=== PATIENT | female | born 1995 | race Caucasian/White ===

== ENCOUNTER → 2019-05-30 | Outpatient (CLI) | payer BC, OTHER ==
--- NOTE | 2019-05-30 11:17 | ECGEPIP ---
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
== END ==
LOC: M LAB 08:47
PROVIDERS: ATTEND Family Medicine
DX: F11.90 Opioid use, unspecified, uncomplicated (principal)

== ENCOUNTER → 2019-06-04 | Outpatient (CLI) | payer BC, OTHER ==
[2019-06-04 16:32] LABS: HEMATOCRIT 40.4 % (36.0-47.0); HEMOGLOBIN 13.5 g/dl (12.0-15.5); MEAN CORPUSCULAR HEMOGLOBIN 30.8 pg (27.0-33.0); MEAN CORPUSCULAR HGB CONC 33.4 g/dl (32.0-36.5); PLATELET COUNT, AUTOMATED 298 10^3/uL (150-450); RED BLOOD COUNT 4.39 10^6/uL (4.00-5.40); WHITE BLOOD COUNT 10.4 10^3/uL (4.0-10.0)
[2019-06-04 16:55] LABS: ALT/SGPT 27 U/L (12-78); BILIRUBIN,TOTAL 0.2 MG/DL (0.2-1.0); BLOOD UREA NITROGEN 15 MG/DL (7-18); CALCIUM LEVEL 9.4 MG/DL (8.5-10.1); CARBON DIOXIDE LEVEL 34 MEQ/L (21-32); CHLORIDE LEVEL 102 MEQ/L (98-107); GLOMERULAR FILTRATION RATE > 60.0 (>60); GLUCOSE, FASTING 89 MG/DL (70-100); SODIUM LEVEL 141 MEQ/L (136-145)
[2019-06-04 17:39] LABS: CHLAMYDIA DNA AMPLIFICATION POSITIVE (NEGATIVE); GC DNA AMPLIFICATION NEGATIVE (NEGATIVE)
[2019-06-04 17:42] LABS: HIV 1&2 SCREEN CENTAUR NEGATIVE (NEGATIVE)
[2019-06-07 10:40] LABS: HEPATITIS B SURFACE ANTIGEN NEGATIVE (NEGATIVE)
[2019-06-07 11:08] LABS: HEPATITIS C VIRUS ABY INDEX < 0.0 INDEX (<0.8)
== END ==
LOC: M WUC 12:26
PROVIDERS: ATTEND Family Medicine
DX: F11.20 Opioid dependence, uncomplicated (principal)

== ENCOUNTER → 2019-07-09 | Outpatient (REF) | payer BC, OTHER | LOC: M LAB 19:51 | PROVIDERS: ATTEND Physician Assistant | DX: J02.9 Acute pharyngitis, unspecified (principal) ==

== ENCOUNTER → 2019-08-08 | Outpatient (REF) | payer OTHER | LOC: M LAB REF 17:53 | PROVIDERS: ATTEND Physician Assistant | DX: J02.9 Acute pharyngitis, unspecified (principal) ==

== ENCOUNTER → 2020-04-17 | Outpatient (CLI) | payer OTHER ==
[2020-04-17 11:52] LABS: BASO # 0.1 10^3/uL (0.0-0.2); BASO % 0.5 % (0.0-1.0); EOS # 0.1 10^3/uL (0.0-0.5); HEMATOCRIT 43.5 % (36.0-47.0); HEMOGLOBIN 14.1 g/dl (12.0-15.5); LYMPH # 5.1 10^3/uL (1.5-5.0); LYMPH % 37.1 % (24.0-44.0); MEAN CORPUSCULAR HEMOGLOBIN 29.1 pg (27.0-33.0); MEAN CORPUSCULAR HGB CONC 32.4 g/dl (32.0-36.5); MEAN CORPUSCULAR VOLUME 89.9 fl (80.0-96.0); MONO # 0.7 10^3/uL (0.0-0.8); MONO % 4.8 % (0.0-5.0); NEUTROPHILS # 7.7 10^3/uL (1.5-8.5); NEUTROPHILS % 56.1 % (36.0-66.0); PLATELET COUNT, AUTOMATED 335 10^3/uL (150-450); RED BLOOD COUNT 4.84 10^6/uL (4.00-5.40); WHITE BLOOD COUNT 13.8 10^3/uL (4.0-10.0)
[2020-04-17 12:11] LABS: ERYTHROCYTE SEDIMENTATION RATE 18 mm/hr (0-20)
[2020-04-17 12:21] LABS: ALBUMIN 4.5 GM/DL (3.2-5.2); ALT/SGPT 114 U/L (12-78); BILIRUBIN,TOTAL 0.4 MG/DL (0.2-1.0); BLOOD UREA NITROGEN 19 MG/DL (7-18); CALCIUM LEVEL 9.7 MG/DL (8.5-10.1); CARBON DIOXIDE LEVEL 30 MEQ/L (21-32); CHLORIDE LEVEL 102 MEQ/L (98-107); FREE T4 1.23 NG/DL (0.76-1.46); GLOMERULAR FILTRATION RATE > 60.0 (>60); GLUCOSE, FASTING 82 MG/DL (70-100); POTASSIUM SERUM 3.8 MEQ/L (3.5-5.1); SODIUM LEVEL 139 MEQ/L (136-145)
[2020-04-18 16:32] LABS: Lyme Disease IgG/IgM Antibodie <0.91 ISR (0.00-0.90); Lyme Disease IgM Ab Quantitati <0.80 index (0.00-0.79)
== END ==
LOC: M WUC 09:23
PROVIDERS: ATTEND Physician Assistant
DX: G51.0 Bell's palsy (principal); Z20.828 Contact with and (suspected) exposure to other viral communicable diseases

== ENCOUNTER 2021-01-03 16:46 | Inpatient (IN) | payer BC, OTHER ==
[~2021-01-03] VITALS: Ht 162.6 cm; Wt 113.8 kg
[2021-01-03] MEDS ORDERED: METH-1177 PO (16:57)
[2021-01-03] MEDS ORDERED: VENL37.598 (16:57)
[2021-01-03 17:34] LABS: HEMATOCRIT 43.5 % (36.0-47.0); HEMOGLOBIN 14.9 g/dl (12.0-15.5); MEAN CORPUSCULAR HGB CONC 34.3 g/dl (32.0-36.5); MEAN CORPUSCULAR VOLUME 87.7 fl (80.0-96.0); PLATELET COUNT, AUTOMATED 369 10^3/uL (150-450); RED BLOOD COUNT 4.96 10^6/uL (4.00-5.40); WHITE BLOOD COUNT 22.8 10^3/uL (4.0-10.0)
[2021-01-03 17:58] LABS: BLOOD UREA NITROGEN 14 MG/DL (7-18); CALCIUM LEVEL 9.5 MG/DL (8.5-10.1); CARBON DIOXIDE LEVEL 26 MEQ/L (21-32); CHLORIDE LEVEL 102 MEQ/L (98-107); CK-MB VALUE MASS 6.7 NG/ML (<3.6); CPK CREATINE PHOSPHOKINASE 272 U/L (26-192); CREATININE FOR GFR 0.65 MG/DL (0.55-1.30); GLOMERULAR FILTRATION RATE > 60.0 (>60); GLUCOSE, FASTING 85 MG/DL (70-100); MB/CK RELATIVE INDEX 2.46 (< OR =4); SODIUM LEVEL 136 MEQ/L (136-145); TROPONIN I < 0.02 NG/ML (< 0.10)
[2021-01-03] MEDS ORDERED: NS 1,000 ML IV ONE (18:05)
[2021-01-03 18:23] LABS: ETHYL ALCOHOL (ETHANOL) < 0.003 % (0.000-0.010)
[2021-01-03 18:25] LABS: HCG, SERUM QUALITATIVE NEGATIVE (NEGATIVE)
[2021-01-03 18:32] LABS: RSV AMPLIFICATION NEGATIVE (NEGATIVE)
[2021-01-03] MEDS ORDERED: VALSARTAN 80 MG TAB (DIOVAN) PO ONE (18:50)
--- NOTE | 2021-01-03 19:15 | ECGEPIP ---
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
[2021-01-03 20:48] LABS: AMPHETAMINES LEVEL URINE NEGATIVE (NEGATIVE); BARBITURATES URINE NEGATIVE (NEGATIVE); BENZODIAZEPINES URINE NEGATIVE (NEGATIVE); CANNABINOIDS URINE POSITIVE (NEGATIVE); COCAINE METABOLITE URINE NEGATIVE (NEGATIVE); METHADONE URINE POSITIVE (NEGATIVE); OPIATES URINE POSITIVE (NEGATIVE); PHENCYCLIDINE URINE NEGATIVE (NEGATIVE)
--- NOTE | 2021-01-03 21:31 | REPVR ---
PROCEDURE INFORMATION: Exam: XR Chest Exam date and time: 01/03/2021 8:58 PM Age: 25 years old Clinical indication: Other: Palpitations TECHNIQUE: Imaging protocol: XR of the chest. Views: 1 view. COMPARISON: No relevant prior studies available. FINDINGS: Lungs: Unremarkable. No consolidation. Pleural spaces: Unremarkable. No pleural effusion. No pneumothorax. Heart/Mediastinum: Unremarkable. No cardiomegaly. Bones/joints: Unremarkable. IMPRESSION: No acute findings. Electronically signed by: Dany Snider On 01/03/2021 21:30:53 PM
[2021-01-03] MEDS ORDERED: ACETAMINOPHEN TAB 650MG DOSE (2X325MG) PO PRN (23:05)
--- NOTE | 2021-01-03 23:46 | HPEPDOC ---
[facility] Medical History & Physical Date of Admission Jan 03, 2021 Date of Service: Jan 03, 2021 Primary Care Physician: JAZZ MCCORMACK PA-C Attending Physician: ANUPAM MARTINO MD History and Physical CHIEF COMPLAINT: Syncope HISTORY OF PRESENT ILLNESS: Patient is a 25-year-old female who presented to [facility] ED because she was seen at an urgent care earlier today and found to have a heart rate in the low 40s. Patient states that she was recently started on Effexor this past Friday (37.5 mg) by her physician at [facility] for anxiety/depression and on Friday she began to have extreme fatigue, poor PO intake, sleepiness, and generalized back pain. She slept most of the day on Friday and on Friday she stood up to walk to the bathroom she was lightheaded and smacked her head on the toilet, purposely laid down on the flood and then per the patient, "passed out for 3 hours". After she woke up from this she felt fine and went back to sleep. Her fatigue continued and she slept all day Friday and Friday however she got up to use the bathroom and when she entered the bath room she became lightheaded and collapsed. She came to about an hour later and went back to sleep. The following morning she went to the urgent care because her throat hurt, was found to have a low HR, and was sent to [facility]. She lives alone and adamantly denies taking anything outside of her prescribe methadone, however her UDS was positive for marijuana, opiates, and methadone. In the ED, she was found to have a WBC count of 20k, negative CXR and UA, normal electrolytes and troponins, but was found to be in sinus bradycardia. The hospitalist service was contacted for admission. PAST MEDICAL HISTORY: Depression/anxiety Opiate use disorder (on methadone at [facility]) Possible PCOS PAST SURGICAL HISTORY: None SOCIAL HISTORY: Denies tobacco use. Denies alcohol use. Denies marijuana, heroin, cocaine, PCP, or other illicit drug use. States she only takes her methadone currently. Lives at home alone. No history of recent travel. No pets FAMILY HISTORY: Mother of opiate overdose, PNA Father alive with diabetes, HTN ALLERGIES: Please see below. REVIEW OF SYSTEMS: Constitutional: Denies fevers, chills, night sweats, or recent unexpected weight change HEENT: Denies headaches, no visual changes or eye pain, denies nosebleeds or difficulty swallowing. Admits to hitting head and apparently losing consciousness Cardiovascular: Denies chest pain, palpitations, or orthopnea. Respiratory: Denies cough, wheezing, or shortness of breath GI: Denies nausea, abdominal pain, diarrhea. Admits to single episode of emesis on prior Friday. Admits to chronic constipation. : Denies pain with urination, difficulty urinating, or frequency Musculoskeletal: Denies joint pain or swelling Neuro/psych: Denies muscle weakness or sensory loss Skin: Denies skin rashes HOME MEDICATIONS: Please see below. PHYSICAL EXAMINATION: VITAL SIGNS: See below GENERAL APPEARANCE: Upset, crying female who appears stated age in mild distress but easily consoled after several minutes. HEENT: NC, AT, EOMI, no scleral icterus, moist mucous membranes, no pharyngeal erythema. Possible bite felipa along lateral edge of left side of tongue CARDIOVASCULAR: bradycardic rate, regular rhythm, normal S1-S2. No murmurs, gallops, rubs. LUNGS: CTAB with full breath sounds, no wheezes, crackles, or rhonchi. ABDOMEN: Soft, nontender, nondistended, bowel sounds present. No masses or ecchymosis. No CVA tenderness. EXTREMITIES: No swelling or edema NEUROLOGICAL: No focal or sensory deficits. CN II-XII grossly intact. PSYCHIATRIC: Anxious mood and congruent affect LABORATORY DATA: See below. IMAGIN01/02/21 CXR: "IMPRESSION: No acute findings. " MICROBIOLOGY: Please see below. Assessment/Plan: Patient is a 25-year-old female with a past medical history of opiate use disorder who presents with a 4-day history of fatigue, possible syncope, and found to have possible symptomatic sinus bradycardia. #. Bradycardia -Symptomatic based on syncopal events-ddx includes too high dose of methadone, v asovagal response -Monitor on tele, thyroid studies ordered, electrolytes WNL. #. Syncopal episode-likely vasovagal -History of vasovagal symptoms but passing out for hours at a time makes history questionable. -CT head, EEG, echo, telemetry ordered. #. Leukocytosis -CXR, UA negative. SIRS negative. -Possibly from dehydration 2/2 poor PO intake. #. Opiate use disorder -May continue methadone but at lower dose given bradycardia as I suspect that may be the cause of her bradycardia. -Day team may considering consulting [facility] for advice in AM DVT prophylaxis: lovenox Dispo: Pending clinical improvement Vital Signs Vital Signs Date Time Temp Pulse Resp B/P (MAP) Pulse Ox O2 Delivery O2 Flow Rate FiO2 01/03/21 22:16 40 16 186/93 (124) 99 Room Air 01/03/21 16:57 97.0 Laboratory Data Labs 24H Laboratory Tests 2 01/03/21 17:06: Nucleated Red Blood Cells % (auto) 0.0, Anion Gap 8, Glomerular Filtration Rate > 60.0, Calcium Level 9.5, Total Creatine Kinase 272H, Creatine Kinase MB 6.7H, Creatine Kinase MB Relative Index 2.46, Troponin I < 0.02, Human Chorionic Gonadotropin, Qual NEGATIVE, Ethyl Alcohol Level < 0.003, Coronavirus (COVID- 19)(PCR) NEGATIVE, Influenza Type A (RT-PCR) NEGATIVE, Influenza Type B (RT-PCR) NEGATIVE, Respiratory Syncytial Virus (PCR) NEGATIVE 01/03/21 20:01: Urine Color YELLOW, Urine Appearance HAZY, Urine pH 6.0, Urine Specific [place] 1.010, Urine Protein 1+H, Urine Glucose (UA) NEGATIVE, Urine Ketones NEGATIVE, Urine Blood NEGATIVE, Urine Nitrite NEGATIVE, Urine Bilirubin NEGATIVE, Urine Urobilinogen 4.0H, Urine Leukocyte Esterase TRACEH, Urine WBC (Auto) 7H, Urine RBC (Auto) 0, Urine Hyaline Casts (Auto) 1, Urine Bacteria (Auto) NEGATIVE, Urine Squamous Epithelial Cells 2, Urine Granular Casts (Auto) 1, Urine Mucus (Auto) SMALL, Urine Sperm (Auto) , Urine Opiates Screen POSITIVEH, Urine Methadone Screen POSITIVEH, Urine Barbiturates Screen NEGATIVE, Urine Phencyclidine Screen NEGATIVE, Urine Amphetamines Screen NEGATIVE, Urine Benzodiazepines Screen NEGATIVE, Urine Cocaine Metabolite Screen NEGATIVE, Urine Cannabinoids Screen POSITIVEH CBC/BMP Laboratory Tests 01/03/21 17:06 Microbiology Microbiology 01/03/21 Urine Culture, Received Pending 01/03/21 Group A Streptococcus Screen (GUSTAVO), Received Pending Home Medications Scheduled Methadone HCl (Methadone HCl) 10 Mg Tablet, 120 MG PO DAILY Allergies Coded Allergies: Sulfa (Sulfonamide Antibiotics) (Verified Allergy, Unknown, 01/03/21) reaction as baby GME ATTESTATION GME ATTESTATION My faculty preceptor for this patient encounter was physically present during the encounter and was fully available. All aspects of the patient interview, examination, medical decision making process, and medical care plan development were reviewed and approved by the faculty preceptor. The faculty preceptor is aware and concurs with the plan as stated in the body of this note and will attest to such by his/her cosignature. ATTENDING NOTE time of service 215am on Jan 04 Ms. Mendez is a 25 yr old admitted for bradycardia likely 2/2 polysubstance abuse. rest per 's H&P AZUCENA LIZ DO Jan 03, 2021 22:36 ANUPAM MARTINO MD Jan 04, 2021 00:46
[2021-01-03 23:57] LABS: FREE T3 2.9 PG/ML (2.2-4.0); FREE T4 1.55 NG/DL (0.76-1.46); MAGNESIUM LEVEL 2.3 MG/DL (1.8-2.4); THYROID STIMULATING HORMONE 0.629 uIU/ML (0.358-3.740)
[2021-01-04] VITALS (8 sets, daily range): BP systolic 118–176; BP diastolic 71–98
--- NOTE | 2021-01-04 00:37 | REPVR ---
PROCEDURE INFORMATION: Exam: CT Head Without Contrast Exam date and time: 01/03/2021 11:12 PM Age: 25 years old Clinical indication: Dizziness; Additional info: Syncopal episode TECHNIQUE: Imaging protocol: Computed tomography of the head without contrast. Radiation optimization: All CT scans at this facility use at least one of these dose optimization techniques: automated exposure control; mA and/or kV adjustment per patient size (includes targeted exams where dose is matched to clinical indication); or iterative reconstruction. COMPARISON: No relevant prior studies available. FINDINGS: Brain: No intracranial mass, mass effect or midline shift. No acute intracranial hemorrhage. No CT evidence of acute cortical infarct. Ventricles, cisterns, and sulci are normal in size for age. Paranasal sinuses: Mild pansinus mucosal thickening is present. Mastoid air cells: Mastoid air cells and middle ear structures are normally aerated. Orbital cavity: Imaged orbits are unremarkable. Bones/joints: No calvarial fracture or destructive process. Soft tissues: No focal extracranial soft tissue swelling. IMPRESSION: No acute or concerning focal intracranial abnormality. Electronically signed by: Omid Duran On 01/04/2021 00:37:37 AM
[2021-01-04] MEDS ORDERED: hydrALAZINE 20MG/ML 1ML VIAL (J0360 PER 20MG) IV ONE (03:10)
[2021-01-04 05:55] LABS: BASO # 0.1 10^3/uL (0.0-0.2); BASO % 0.4 % (0.0-1.0); EOS # 0.1 10^3/uL (0.0-0.5); EOS % 0.8 % (0.0-3.0); HEMATOCRIT 39.5 % (36.0-47.0); HEMOGLOBIN 13.6 g/dl (12.0-15.5); LYMPH # 4.6 10^3/uL (1.5-5.0); LYMPH % 26.4 % (24.0-44.0); MEAN CORPUSCULAR HEMOGLOBIN 30.4 pg (27.0-33.0); MEAN CORPUSCULAR HGB CONC 34.4 g/dl (32.0-36.5); MEAN CORPUSCULAR VOLUME 88.2 fl (80.0-96.0); NEUTROPHILS # 11.5 10^3/uL (1.5-8.5); NEUTROPHILS % 65.7 % (36.0-66.0); PLATELET COUNT, AUTOMATED 336 10^3/uL (150-450); RED BLOOD COUNT 4.48 10^6/uL (4.00-5.40); WHITE BLOOD COUNT 17.5 10^3/uL (4.0-10.0)
[2021-01-04 06:17] LABS: BLOOD UREA NITROGEN 10 MG/DL (7-18); CALCIUM LEVEL 9.1 MG/DL (8.5-10.1); CARBON DIOXIDE LEVEL 25 MEQ/L (21-32); CHLORIDE LEVEL 102 MEQ/L (98-107); GLOMERULAR FILTRATION RATE > 60.0 (>60); GLUCOSE, FASTING 93 MG/DL (70-100); SODIUM LEVEL 140 MEQ/L (136-145)
[2021-01-04] MEDS ORDERED: CHLORASEPTIC SPRAY MT PRN (06:40)
[2021-01-04] MEDS ORDERED: CEPACOL LOZENGE PO PRN (06:40)
[2021-01-04] MEDS: ENOXAPARIN 40MG/0.4ML SYRINGE (J1650 PER 10MG) SC SCH (09:00)
[2021-01-04] MEDS ORDERED: HOME MED LIST COMPLETE! XX SCH (09:20)
--- NOTE | 2021-01-04 10:39 | IPNPDOC ---
Date Seen The patient was seen on 01/04/21. Progress Note SUBJECTIVE: Patient was seen examined at bedside. She states that she feels well has no acute events overnight. Telemetry was reviewed patient continues to be bradycardic between 45 and 55 bpm. She denies any chest pain palpitation shortness of breath lightheadedness dizziness or blurred vision. She is ambulating independently around her room and going to the restroom without assistance. Patient does endorse to me that she does regularly use heroin, snorting. The last time she used it was on December 30. She was recently started on venlafaxine continues to take methadone daily. She attributes her episode of syncope and bradycardia to these 3 medications. OBJECTIVE PHYSICAL EXAMINATION: VITAL SIGNS: please see below General: NAD, comfortable HEENT: PERRLA, EOMI, sclerae clear Neck: supple, normal ROM, no JVD Respiratory: lungs CTAB, no wheeze, no rales, no crackles CVS: RRR, normal S1, S2, no murmurs Abdo: soft, no masses, no hepatosplenomegaly, BS+, no rebound tenderness Extremities: no edema, pulses 2+ MSK: no joint deformities, normal ROM Neuro: no focal neuro deficits, moving all 4 extremities, CN2-12 intact. Strength 5/5 in all 4 extremities. No nystagmus. Psych: calm, cooperative, AAO x 3 LABORATORY DATA, IMAGING STUDIES, MICROBIOLOGY: Please see below. Echocardiogram: Ordered for 01/04/2021 DVT prophylaxis ordered?: Lovenox daily ASSESSMENT AND PLAN: Patient is a 25-year-old female with a past medical history of opiate use disorder PTSD depression and anxiety presented to the hospital with a 4-day history of fatigue syncope after she collapsed in her bathroom and hit her head on the toilet. In the ER she was found to be in sinus bradycardia. Patient was recently started on venlafaxine on 12/29/2020. She states that on Friday the after she started venlafaxine she stood up to walk to the bathroom felt lightheaded syncopized and hit her head on the toilet. Patient has been somnolent and sleepy Friday and Friday of this week and collapsed again. I suspect that combination of starting venlafaxine as well as heroin use the day a fterward and daily methadone use has led her to have a syncopal episode with symptomatic bradycardia. PROBLEMS: Syncope/symptomatic bradycardia: possibly related to medication/illicit drug use. EKG showing sinus bradycardia. Prolonged QT. Effect of venlafaxine, in combination with methadone and heroin possible. overnight tele showing sinus rivera, down to low 40s. Trop wnl. Thyroid panel wnl. F/u 2D echo. Check EEG. CT head wo acute changes. Leukocytosis: CXR, UA clear. No SIRS criteria. Possible 2/2 dehydration. WBC trending down. Afebrile. Will check blood cultures. Monitor clinically. Opiate use disorder: daily methadone use. regular heroin use, snorts only. Follows with [facility]. DVT ppx: lovenox. Dispo: pending clinical improvement. VS, I&O, 24H, Fishbone Vital Signs/I&O Vital Signs Date Time Temp Pulse Resp B/P (MAP) Pulse Ox O2 Delivery O2 Flow Rate FiO2 01/04/21 08:00 97.8 44 20 140/82 (101) 100 Room Air I&O- Last 24 Hours up to 6 AM 01/04/21 06:00 Intake Total 1000 ml Balance 1000 ml Laboratory Data 24H LABS Laboratory Tests 2 01/03/21 17:06: Nucleated Red Blood Cells % (auto) 0.0, Anion Gap 8, Glomerular Filtration Rate > 60.0, Calcium Level 9.5, Magnesium Level 2.3, Total Creatine Kinase 272H, Creatine Kinase MB 6.7H, Creatine Kinase MB Relative Index 2.46, Troponin I < 0.02, Thyroid Stimulating Hormone (TSH) 0.629, Free Thyroxine 1.55H, Free Triiodothyronine 2.9, Human Chorionic Gonadotropin, Qual NEGATIVE, Ethyl Alcohol Level < 0.003, Coronavirus (COVID-19)(PCR) NEGATIVE, Influenza Type A (RT-PCR) NEGATIVE, Influenza Type B (RT-PCR) NEGATIVE, Respiratory Syncytial Virus (PCR) NEGATIVE 01/03/21 20:01: Urine Color YELLOW, Urine Appearance HAZY, Urine pH 6.0, Urine Specific [place] 1.010, Urine Protein 1+H, Urine Glucose (UA) NEGATIVE, Urine Ketones NEGATIVE, Urine Blood NEGATIVE, Urine Nitrite NEGATIVE, Urine Bilirubin NEGATIVE, Urine Urobilinogen 4.0H, Urine Leukocyte Esterase TRACEH, Urine WBC (Auto) 7H, Urine RBC (Auto) 0, Urine Hyaline Casts (Auto) 1, Urine Bacteria (Auto) NEGATIVE, Urine Squamous Epithelial Cells 2, Urine Granular Casts (Auto) 1, Urine Mucus (Auto) SMALL, Urine Sperm (Auto) , Urine Opiates Screen POSITIVEH, Urine Methadone Screen POSITIVEH, Urine Barbiturates Screen NEGATIVE, Urine Phencyclidine Screen NEGATIVE, Urine Amphetamines Screen NEGATIVE, Urine Benzodiazepines Screen NEGATIVE, Urine Cocaine Metabolite Screen NEGATIVE, Urine Cannabinoids Screen POSITIVEH 01/04/21 05:11: Nucleated Red Blood Cells % (auto) 0.0, Anion Gap 13, Glomerular Filtration Rate > 60.0, Calcium Level 9.1, Immature Granulocyte % (Auto) 0.7, Neutrophils (%) (Auto) 65.7, Lymphocytes (%) (Auto) 26.4, Monocytes (%) (Auto) 6.0, Eosinophils (%) (Auto) 0.8, Basophils (%) (Auto) 0.4, Neutrophils # (Auto) 11.5H, Lymphocytes # (Auto) 4.6, Monocytes # (Auto) 1.0H, Eosinophils # (Auto) 0.1, Basophils # (Auto) 0.1 CBC/BMP Laboratory Tests 01/03/21 17:06 01/04/21 05:11 Microbiology Microbiology 01/04/21 Blood Culture, Received Pending 01/04/21 Blood Culture, Received Pending 01/03/21 Urine Culture, Received Pending 01/03/21 Group A Streptococcus Screen (GUSTAVO), Received Pending MERVIN ALEXANDRE MD Jan 04, 2021 10:39
[2021-01-05 04:00] VITALS: BP 133/72
[2021-01-05 05:30] LABS: BASO # 0.1 10^3/uL (0.0-0.2); BASO % 0.7 % (0.0-1.0); EOS # 0.2 10^3/uL (0.0-0.5); EOS % 1.6 % (0.0-3.0); HEMATOCRIT 41.4 % (36.0-47.0); HEMOGLOBIN 13.8 g/dl (12.0-15.5); LYMPH # 3.5 10^3/uL (1.5-5.0); LYMPH % 30.2 % (24.0-44.0); MEAN CORPUSCULAR HEMOGLOBIN 30.3 pg (27.0-33.0); MEAN CORPUSCULAR HGB CONC 33.3 g/dl (32.0-36.5); MEAN CORPUSCULAR VOLUME 90.8 fl (80.0-96.0); MONO # 0.6 10^3/uL (0.0-0.8); NEUTROPHILS # 7.2 10^3/uL (1.5-8.5); NEUTROPHILS % 61.8 % (36.0-66.0); PLATELET COUNT, AUTOMATED 339 10^3/uL (150-450); RED BLOOD COUNT 4.56 10^6/uL (4.00-5.40); WHITE BLOOD COUNT 11.6 10^3/uL (4.0-10.0)
[2021-01-05 05:49] LABS: BLOOD UREA NITROGEN 12 MG/DL (7-18); CALCIUM LEVEL 9.5 MG/DL (8.5-10.1); CARBON DIOXIDE LEVEL 29 MEQ/L (21-32); CHLORIDE LEVEL 105 MEQ/L (98-107); CREATININE FOR GFR 0.65 MG/DL (0.55-1.30); GLOMERULAR FILTRATION RATE > 60.0 (>60); GLUCOSE, FASTING 101 MG/DL (70-100); POTASSIUM SERUM 4.1 MEQ/L (3.5-5.1); SODIUM LEVEL 139 MEQ/L (136-145)
[2021-01-05 08:00] VITALS: BP 137/73
[2021-01-05] MEDS: ENOXAPARIN 40MG/0.4ML SYRINGE (J1650 PER 10MG) SC SCH (09:00)
--- NOTE | 2021-01-05 09:59 | ECHO ---
ECHOCARDIOGRAM DATE OF PROCEDURE: 01/04/2021 Age: 25 Gender: Female Height: 163 cm Weight: 105 kg REFERRING PHYSICIAN: Dr. Willy Jones INDICATION: Syncope 2D MEASUREMENTS: Aortic annulus 2.0 cm Left ventricular septum 0.94 cm Posterior wall 0.92 cm Left ventricle diastole 4.5 cm Left ventricle systole 3.1 cm Left atrium 4.2 cm Left atrial volume index 24 Proximal ascending aorta 2.7 cm DOPPLER MEASUREMENTS: No aortic regurgitation. Aortic valve velocity 132 cm/s LVOT velocity 102 cm/s No mitral regurgitation Mitral E velocity 97.4 cm/s Mitral A velocity 54.2 cm/s Mitral deceleration time 264 msec No tricuspid regurgitation Trace pulmonic regurgitation. Pulmonary acceleration time 142 msec MITRAL ANNULAR TISSUE DOPPLER E prime septal 8.7 cm/s, E prime lateral 9.6 cm/s DESCRIPTION: Rhythm was marked sinus bradycardia. This was a moderately technically difficult echocardiogram. No useful subcostal views. No pericardial effusion. This was a 2D, M-mode, color flow Doppler and pulse wave Doppler examination, including mitral annular tissue Doppler. CONCLUSIONS: 1. Normal echocardiogram Doppler. 2. Moderately technically difficult echocardiogram. 3. Normal left ventricle internal dimensions and wall thickness. Normal regional LV wall motion and wall thickening. Normal LV systolic function. LVEF 65% by visual estimate. Normal LV diastolic function. Normal RV size and systolic function. 4. No pericardial effusion.
--- NOTE | 2021-01-05 10:29 | DS.PDOC ---
Discharge Summary General Date of Admission Jan 03, 2021 at 22:07 Date of Discharge 01/05/21 Discharge Summary PROCEDURES PERFORMED DURING STAY: [None]. ADMITTING DIAGNOSES: Symptomatic bradycardia Syncopal episode Leukocytosis Opiate use disorder DISCHARGE DIAGNOSES: Symptomatic bradycardia Syncopal episode Leukocytosis Opiate use disorder COMPLICATIONS/CHIEF COMPLAINT: Polysubstance Abuse, Sinus Bradycardia. HISTORY OF PRESENT ILLNESS: Patient is a 25-year-old female who presented to [facility] ED because she was seen at an urgent care earlier today and found to have a heart rate in the low 40s. Patient states that she was recently started on Effexor this past Friday (37.5 mg) by her physician at [facility] for anxiety/depression and on Friday she began to have extreme fatigue, poor PO intake, sleepiness, and generalized back pain. She slept most of the day on Friday and on Friday she stood up to walk to the bathroom she was lightheaded and smacked her head on the toilet, purposely laid down on the flood and then per the patient, "passed out for 3 hours". After she woke up from this she felt fine and went back to sleep. Her fatigue continued and she slept all day Friday and Friday however she got up to use the bathroom and when she entered the bathroom she became lightheaded and collapsed. She came to about an hour later and went back to sleep. The following morning she went to the urgent care because her throat hurt, was found to have a low HR, and was sent to [facility]. She lives alone and adamantly denies taking anything outside of her prescribe methadone. In the ED, she was found to have a WBC count of 20k, negative CXR and UA, normal electrolytes and troponins, but was found to be in sinus bradycardia. The hospitalist service was contacted for admission. . HOSPITAL COURSE: Syncope/symptomatic bradycardia: possibly related to medication/illicit drug use. EKG showing sinus bradycardia. Prolonged QT. Effect of venlafaxine, in combination with methadone and heroin possible. Overnight telemetry monitoring x48 hours showed no acute arrhythmias, sinus bradycardia which improved towards discharge. Patient was ranging between 50 and 60 bpm. Repeat EKG shows resolution of QTC prolongation. With Dr. Sparrow given the fact that echo is normal and the heart rate is improving without symptoms recommends safe discharge with cardiology referral Trop wnl. Thyroid panel wnl. 2D echocardiogram reviewed, normal findings. CT head with was without acute changes. EEG was completed to follow-up as outpatient. Leukocytosis: CXR, UA clear. No SIRS criteria. Possible 2/2 dehydration. WBC trended down. Afebrile. Blood cultures prelim negative at 24 hours. Patient has no cough no chest pain or shortness of breath no diarrhea and abdominal pain. She reports no subjective fevers or chills. Opiate use disorder: daily methadone use. regular heroin use, snorts only. Follows with [facility]. DISCHARGE MEDICATIONS: Please see below. ALLERGIES: Please see below. PHYSICAL EXAMINATION ON DISCHARGE: VITAL SIGNS: please see below General: NAD, comfortable HEENT: PERRLA, EOMI, sclerae clear Neck: supple, normal ROM, no JVD Respiratory: lungs CTAB, no wheeze, no rales, no crackles CVS: RRR, normal S1, S2, no murmurs Abdo: soft, no masses, no hepatosplenomegaly, BS+, no rebound tenderness Extremities: no edema, pulses 2+ MSK: no joint deformities, normal ROM Neuro: no focal neuro deficits, moving all 4 extremities, CN2-12 intact. Strength 5/5 in all 4 extremities. No nystagmus. Psych: calm, cooperative, AAO x 3 LABORATORY DATA: Please see below. IMAGIND echo from 01/04/2021 1. Normal echocardiogram Doppler. 2. Moderately technically difficult echocardiogram. 3. Normal left ventricle internal dimensions and wall thickness. Normal regional LV wall motion and wall thickening. Normal LV systolic function. LVEF 65% by visual estimate. Normal LV diastolic function. Normal RV size and systolic function. 4. No pericardial effusion PROGNOSIS: Good ACTIVITY: [As tolerated]. DIET: As tolerated DISCHARGE PLAN: Discharge home to discontinue using venlafaxine. Avoid heroin. [facility] Referral has been given to Dr. Landry and cardiology within 1 to 2 weeks. Okay to resume methadone as QTC prolongation has resolved. DISPOSITION: DC home DISCHARGE INSTRUCTIONS: . Please follow-up with your primary care doctor within 3-5 days . Please follow-up with cardiology within 1 to 2 weeks . Please taking medications as prescribed. . If you develop bleeding, chest pain, shortness of breath, seizures, nausea, fevers, or otherwise worsening of your symptoms, please call 911 or return to the nearest emergency room ITEMS TO FOLLOWUP ON ON OUTPATIENT: Follow-up EEG Follow-up final blood cultures DISCHARGE CONDITION: [Stable]. TIME SPENT ON DISCHARGE: 35 minutes Vital Signs/I&Os Vital Signs Date Time Temp Pulse Resp B/P (MAP) Pulse Ox O2 Delivery O2 Flow Rate FiO2 01/05/21 04:00 97.1 64 50 133/72 (92) 96 Room Air I&O- Last 24 Hours up to 6 AM 01/05/21 06:00 Intake Total 400 ml Balance 400 ml Laboratory Data Labs 24H Laboratory Tests 2 01/05/21 05:05: Immature Granulocyte % (Auto) 0.7, Neutrophils (%) (Auto) 61.8, Lymphocytes (%) (Auto) 30.2, Monocytes (%) (Auto) 5.0, Eosinophils (%) (Auto) 1.6, Basophils (%) (Auto) 0.7, Neutrophils # (Auto) 7.2, Lymphocytes # (Auto) 3.5, Monocytes # (Auto) 0.6, Eosinophils # (Auto) 0.2, Basophils # (Auto) 0.1, Nucleated Red Blood Cells % (auto) 0.0, Anion Gap 5L, Glomerular Filtration Rate > 60.0, Calcium Level 9.5 CBC/BMP Laboratory Tests 01/05/21 05:05 Microbiology Microbiology 01/04/21 Blood Culture - Preliminary, Resulted No growth after 24 hours . All specim... 01/04/21 Blood Culture - Preliminary, Resulted No growth after 24 hours . All specim... 01/03/21 Urine Culture - Final, Complete 01/03/21 Group A Streptococcus Screen (GUSTAVO) - Final, Complete Discharge Medications Scheduled Methadone HCl (Methadone HCl) 10 Mg Tablet, 120 MG PO DAILY, (Reported) Allergies Coded Allergies: Sulfa (Sulfonamide Antibiotics) (Verified Allergy, Unknown, 01/03/21) reaction as baby MERVIN ALEXANDRE MD Jan 05, 2021 10:29
--- NOTE | 2021-01-05 19:19 | ECGEPIP ---
[facility] Test Date: 2021-01-05 Pat Name: MELANIE HERMOSILLO Department: Room: [place] [address] Gender: Female Monogram Maker: kristyn : 1995 Requested By: MERVIN ALEXANDRE Order Number: [id number] Reading MD: Kaylee Watson Measurements Intervals [place] Rate: 50 P: 39 DC: 150 QRS: 44 QRSD: 94 T: 24 QT: 496 QTc: 452 Interpretive Statements Sinus bradycardia Since 01/03/21 HR is faster and QTc interval is shorter Electronically Signed on 01-05-2021 19:19:01 EDT by Kaylee Watson
--- NOTE | 2021-01-06 08:21 | EEG ---
ELECTROENCEPHALOGRAM DATE: 01/04/2021 REFERRING PHYSICIAN: ANUPAM MARTINO MD DIAGNOSIS: Syncope. EEG#: [id number] HISTORY: The patient is a 25-year-old woman who was admitted to [facility] due to four days of fatigue, possible syncope, sinus bradycardia. She has a history of opiate use disorder. She is currently valsartan, hydralazine, Enoxaparin, etc. TECHNICAL DESCRIPTION: This digital electroencephalogram (EEG) was recorded by 21 scalp, ear, and two electrocardiogram (EKG) electrodes and was reviewed in bipolar and referential montages following reformatting in 10-20 international electrode placement system. INTERPRETATION: The patient was noted to be in awake and drowsy states during this EEG. Resting and awake background rhythm consisted of 7.5 Hz alpha activity measuring 15-40 microvolts in amplitude which was symmetric and reactive to eye opening. Attenuation of posterior dominant rhythm was seen during transition to drowsiness. Stage II and III sleep were reviewed and were symmetric bilaterally. Hyperventilation could not be performed. Photic stimulation remained unremarkable. EKG revealed sinus bradycardia with a mean heart rate 36 beats per minute. No relevant clinical activity was noted. No focal, lateralizing, or epileptiform abnormalities were seen. CONCLUSION: This EEG in awake, drowsy states, stage II and III sleep is mildly abnormal due to question of mild generalized slowing and disorganization of background consistent with nonspecific diffuse cerebellar dysfunction such as seen in encephalopathy due to multiple potential causes. Sinus bradycardia was noted. No epileptiform abnormalities were seen. Clinical correlation is recommended.
== END 2021-01-05 11:48 | disposition home or self-care (01) | DRG 201 ==
LOC: M ED 16:46 → EDBD 16:46 → M ED INP 22:07 → ENRESERV 22:33 → M PCU 01-04 00:50
PROVIDERS: ADMIT Internal Medicine; ATTEND Family Medicine
DX: R00.1 Bradycardia, unspecified (principal); F32.9 Major depressive disorder, single episode, unspecified; F41.9 Anxiety disorder, unspecified; F11.10 Opioid abuse, uncomplicated; D72.829 Elevated white blood cell count, unspecified; Z20.822 Contact with and (suspected) exposure to COVID-19; Z88.2 Allergy status to sulfonamides

== ENCOUNTER 2021-01-05 06:53 | Observation (INO) | payer BC, OTHER ==
[~2021-01-05] VITALS: Ht 162.6 cm; Wt 112.3 kg
[~2021-01-05 06:53] MED LIST: METH-1177 PO; VENL37.598
[2021-01-05] MEDS ORDERED: VANCOMYCIN HCL 1,000 MG, VIAL MATE ADAPTER 1 EACH in NS 250 ML IV SCH (10:00)
[2021-01-05 23:05] VITALS: BP 136/88
--- NOTE | 2021-01-05 23:34 | HPEPDOC ---
[facility] Medical History & Physical Date of Admission Jan 05, 2021 Date of Service: Jan 05, 2021 Attending Physician: ANUPAM MARTINO MD History and Physical CHIEF COMPLAINT: Positive blood culture HISTORY OF PRESENT ILLNESS: Patient is a 25-year-old female discharged today from [facility] for symptomatic bradycardia and subsequent syncope who initially presented with a white blood cell count of 22,000 but after initial work-up was found to be negative for any source and after 2 days the white blood cell count trended down to 11,000 without any intervention. She had an echocardiogram done that did not specifically show any vegetations however it was moderately technically difficult and they were not specifically looking for vegetations. She had also had blood cultures drawn that were preliminarily negative at 24 hours, however following discharge one of the blood cultures came back positive for gram-positive cocci in pairs and clusters. The patient was immediately contacted and urged to come back to the hospital for repeat blood cultures and antibiotic therapy. She states since discharge all she has done is go to the grocery store. She asked that I speak with her father to let him know what was going on. On the phone he stated that he thought she had not been feeling well for many months as she was fatigued constantly and stated that she had a 100 pound weight gain in the last year. She has told him that she has not used any drugs in at least the last 2-1/2 months. PAST MEDICAL HISTORY: Opiate use disorder polysubstance abuse disorder Hx of symptomatic bradycardia likely 2/2 drug use Hx of sinus bradycardia PAST SURGICAL HISTORY: None SOCIAL HISTORY: Denies tobacco use. Denies alcohol use. Urine drug screen positive for marijuana, opiates, methadone. She will deny active use. Lives at home alone. No history of recent travel. No pets FAMILY HISTORY: Mother of opiate overdose, PNA Father alive with diabetes, HTN ALLERGIES: Please see below. REVIEW OF SYSTEMS: Constitutional: Denies fevers, chills, night sweats, or recent unexpected weight change HEENT: Denies headaches, no visual changes or eye pain, denies nosebleeds or difficulty swallowing. Admits to hitting head and apparently losing consciousness Cardiovascular: Denies chest pain, palpitations, or orthopnea. Respiratory: Denies cough, wheezing, or shortness of breath GI: Denies nausea, abdominal pain, diarrhea. Admits to single episode of emesis on prior Friday. Admits to chronic constipation. : Denies pain with urination, difficulty urinating, or frequency Musculoskeletal: Denies joint pain or swelling Neuro/psych: Denies muscle weakness or sensory loss Skin: Denies skin rashes HOME MEDICATIONS: Please see below. PHYSICAL EXAMINATION: VITAL SIGNS: pending GENERAL APPEARANCE: Anxious appearing female who appears stated age in sitting on bed in no acute distress. HEENT: NC, AT, EOMI, no scleral icterus, moist mucous membranes, no pharyngeal erythema. CARDIOVASCULAR: bradycardic rate, regular rhythm, normal S1-S2. No murmurs, gallops, rubs. LUNGS: CTAB with full breath sounds, no wheezes, crackles, or rhonchi. ABDOMEN: Soft, nontender, nondistended, bowel sounds present. No masses or ecchymosis. No CVA tenderness. EXTREMITIES: No swelling or edema NEUROLOGICAL: No focal or sensory deficits. CN II-XII grossly intact. PSYCHIATRIC: Anxious mood and congruent affect LABORATORY DATA: pending IMAGING: None MICROBIOLOGY: Please see below. Assessment/Plan: Patient is a 25-year-old female recently discharged for symptomatic bradycardia, found to have a positive blood culture from that admission, and brought back to the hospital for IV antibiotics and repeat blood cultures. #. Positive blood cultures Preliminary blood culture showing gram-positive cocci in pairs and clusters. We will redraw x2 blood cultures. We will start patient on empiric antibiotics with vancomycin and Zosyn pending results of repeat blood cultures. Patient only meets 2 minor criteria with history of possible IV drug use and single positive blood culture. #. Opiate use disorder Continue home methadone prescribed through [facility] # Class 3 obesity -complicates care DVT prophylaxis: Lovenox, teds/sequentials Disposition: Home Medications Scheduled Methadone HCl (Methadone HCl) 10 Mg Tablet, 120 MG PO DAILY Allergies Coded Allergies: Sulfa (Sulfonamide Antibiotics) (Verified Allergy, Unknown, 01/03/21) reaction as baby GME ATTESTATION GME ATTESTATION My faculty preceptor for this patient encounter was physically present during the encounter and was fully available. All aspects of the patient interview, examination, medical decision making process, and medical care plan development were reviewed and approved by the faculty preceptor. The faculty preceptor is aware and concurs with the plan as stated in the body of this note and will attest to such by his/her cosignature. ATTENDING NOTE time of face to face visit 1145pm Ms. Mendez is a 25 yr old who returned for evaluation of bacteremia vs contaminant. - we will start abx and f/u blood cx results rest per 's note AZUCENA LIZ DO Jan 05, 2021 23:34 ANUPAM MARTINO MD Jan 06, 2021 02:17
[2021-01-06] MEDS: PIPERACILLIN/TAZOBACTAM SOD 3.375 GM in D5W MINI-BAG PLUS 50 ML IV SCH ×4 (00:53→19:41)
[2021-01-06] MEDS ORDERED: HOME MED LIST COMPLETE! XX SCH (00:55)
[2021-01-06] MEDS ORDERED: VANCOMYCIN HCL 1,000 MG, VIAL MATE ADAPTER 1 EACH in NS 250 ML IV ONE ×2 (01:00→02:00)
[2021-01-06 06:00] VITALS: BP 150/81
[2021-01-06 06:37] LABS: HEMOGLOBIN 12.7 g/dl (12.0-15.5); MEAN CORPUSCULAR HEMOGLOBIN 30.2 pg (27.0-33.0); MEAN CORPUSCULAR HGB CONC 33.4 g/dl (32.0-36.5); MEAN CORPUSCULAR VOLUME 90.3 fl (80.0-96.0); PLATELET COUNT, AUTOMATED 314 10^3/uL (150-450); RED BLOOD COUNT 4.21 10^6/uL (4.00-5.40); WHITE BLOOD COUNT 13.1 10^3/uL (4.0-10.0)
[2021-01-06 06:59] LABS: BLOOD UREA NITROGEN 12 MG/DL (7-18); CALCIUM LEVEL 9.3 MG/DL (8.5-10.1); CARBON DIOXIDE LEVEL 28 MEQ/L (21-32); CHLORIDE LEVEL 105 MEQ/L (98-107); CREATININE FOR GFR 0.76 MG/DL (0.55-1.30); GLOMERULAR FILTRATION RATE > 60.0 (>60); GLUCOSE, FASTING 104 MG/DL (70-100); POTASSIUM SERUM 4.1 MEQ/L (3.5-5.1); SODIUM LEVEL 143 MEQ/L (136-145)
[2021-01-06 07:17] LABS: ATYPICAL LYMPH 2 % (0-5); LYMPHOCYTES 34 % (16-44); MONOCYTES 5 % (0-5); NEUTROPHILS 59 % (28-66)
[2021-01-06 07:18] LABS: PLATELET ESTIMATE NORMAL (NORMAL); SMUDGE CELLS 1+
[2021-01-06 08:40] LABS: C REACTIVE PROTEIN QUANTITATIV 8.51 MG/DL (0.00-0.30)
[2021-01-06] MEDS: METHADONE 10 MG TAB (S0109) PO SCH (08:48)
[2021-01-06] MEDS: ENOXAPARIN 40MG/0.4ML SYRINGE (J1650 PER 10MG) SC SCH (08:48)
[2021-01-06] MEDS: VANCOMYCIN HCL 1,000 MG, VIAL MATE ADAPTER 1 EACH in NS 250 ML IV SCH ×2 (10:05→18:00)
--- NOTE | 2021-01-06 10:25 | IPNPDOC ---
Date Seen The patient was seen on 01/06/21. Progress Note SUBJECTIVE: Denies any fever chills nausea vomiting shortness of breath chest pain pressure tightness overnight OBJECTIVE PHYSICAL EXAMINATION: VITAL SIGNS: Please see below. GENERAL: Awake alert oriented to person place and time answering questions appropriately no distress HEENT: Moist mucous membranes no JVD thyromegaly trach ill deviation or stridor CARDIOVASCULAR: S1-S2 sinus rhythm no S3 murmur noted RESPIRATORY: Clear to auscultation no wheezing rales or rhonchi ABDOMINAL: Obese positive bowel sounds soft nontender nondistended no rebound or guarding EXTREMITIES: No cyanosis clubbing or pitting edema SKIN: No Osler's nodes or splinter hemorrhages LABORATORY DATA, IMAGING STUDIES, MICROBIOLOGY: Please see below. Echocardiogram: Reviewed ASSESSMENT AND PLAN: 25-year-old with history of polysubstance abuse with cocaine currently using heroin by sniffing symptomatic bradycardia secondary to drug use opioid abuse sinus bradycardia was found to have gram-positive cocci in 1 of 2 sets of blood cultures admitted for empiric antibiotics with intravenous vancomycin awaiting blood culture results and rule out for endocarditis. Gram-positive bacteremia -In the setting of active drug abuse -High likelihood of right-sided endocarditis, but 2D echocardiogram was negative -On empiric IV vancomycin, awaiting blood culture results and sensitivity Polysubstance abuse -Cessation counseling provided -On methadone History of symptomatic bradycardia, resolved -Due to drug use VS, I&O, 24H, Fishbone Vital Signs/I&O Vital Signs Date Time Temp Pulse Resp B/P (MAP) Pulse Ox O2 Delivery O2 Flow Rate FiO2 01/06/21 06:00 97.3 64 18 150/81 (104) 98 Room Air I&O- Last 24 Hours up to 6 AM 01/06/21 06:00 Intake Total 1525 ml Output Total 300 ml Balance 1225 ml Laboratory Data 24H LABS Laboratory Tests 2 01/06/21 00:10: C-Reactive Protein, Quantitative 10.20H 01/06/21 00:11: Methicillin-Resist S.aureus DNA PCR NOT DETECTED 01/06/21 06:12: C-Reactive Protein, Quantitative 8.51H, Neutrophils (%) (Auto) , Nucleated Red Blood Cells % (auto) 0.0, Neutrophils 59, Lymphocytes (Manual) 34, Monocytes (Manual) 5, Atypical Lymphocytes 2, Smudge Cells 1+, Platelet Estimate NORMAL, Anion Gap 10, Glomerular Filtration Rate > 60.0, Calcium Level 9.3 CBC/BMP Laboratory Tests 01/06/21 06:12 Microbiology Microbiology 01/06/21 Blood Culture, Received Pending 01/06/21 Respiratory Virus Panel (PCR) ([facility]) - Final, Complete 01/06/21 Blood Culture, Received Pending SADAF NEWMAN MD Jan 06, 2021 10:25
[2021-01-06 14:00] VITALS: BP 116/80
[2021-01-06 22:00] VITALS: BP 163/82
[2021-01-06 23:15] VITALS: BP 152/89
[2021-01-07] MEDS: PIPERACILLIN/TAZOBACTAM SOD 3.375 GM in D5W MINI-BAG PLUS 50 ML IV SCH ×5 (00:10→23:59)
[2021-01-07] MEDS: VANCOMYCIN HCL 1,000 MG, VIAL MATE ADAPTER 1 EACH in NS 250 ML IV SCH (02:11)
[2021-01-07 06:00] VITALS: BP 137/65
[2021-01-07 06:33] LABS: BASO # 0.1 10^3/uL (0.0-0.2); BASO % 0.6 % (0.0-1.0); EOS # 0.1 10^3/uL (0.0-0.5); EOS % 0.9 % (0.0-3.0); HEMATOCRIT 37.9 % (36.0-47.0); HEMOGLOBIN 12.5 g/dl (12.0-15.5); LYMPH # 3.7 10^3/uL (1.5-5.0); LYMPH % 31.7 % (24.0-44.0); MEAN CORPUSCULAR HEMOGLOBIN 29.7 pg (27.0-33.0); MONO # 0.7 10^3/uL (0.0-0.8); MONO % 5.9 % (2.0-8.0); PLATELET COUNT, AUTOMATED 317 10^3/uL (150-450); RED BLOOD COUNT 4.21 10^6/uL (4.00-5.40); WHITE BLOOD COUNT 11.6 10^3/uL (4.0-10.0)
[2021-01-07 07:02] LABS: BLOOD UREA NITROGEN 8 MG/DL (7-18); CALCIUM LEVEL 9.5 MG/DL (8.5-10.1); CARBON DIOXIDE LEVEL 27 MEQ/L (21-32); CHLORIDE LEVEL 105 MEQ/L (98-107); CREATININE FOR GFR 0.69 MG/DL (0.55-1.30); GLOMERULAR FILTRATION RATE > 60.0 (>60); GLUCOSE, FASTING 84 MG/DL (70-100); POTASSIUM SERUM 3.6 MEQ/L (3.5-5.1); SODIUM LEVEL 141 MEQ/L (136-145)
[2021-01-07] MEDS: ENOXAPARIN 40MG/0.4ML SYRINGE (J1650 PER 10MG) SC SCH (08:04)
[2021-01-07] MEDS: METHADONE 10 MG TAB (S0109) PO SCH (08:07)
[2021-01-07] MEDS: VANCOMYCIN HCL 750 MG, VIAL MATE ADAPTER 1 EACH in NS 250 ML IV SCH ×2 (09:47→18:07)
--- NOTE | 2021-01-07 10:30 | IPNPDOC ---
Date Seen The patient was seen on 01/07/21. Progress Note SUBJECTIVE: "I want to go home today." Patient requesting to be discharged today blood culture still pending. No fever chills shortness of breath chest pain pressure tightness nausea vomiting diarrhea or abdominal pain. OBJECTIVE PHYSICAL EXAMINATION: VITAL SIGNS: Please see below. GENERAL: Anxious .tearful .awake alert oriented to person place and time answering questions appropriately no distress No cyanosis pallor icterus HEENT: Moist mucous membranes no JVD thyromegaly trach ill deviation or stridor CARDIOVASCULAR: S1-S2 sinus rhythm no S3 murmur noted RESPIRATORY: Clear to auscultation no wheezing rales or rhonchi ABDOMINAL: Obese positive bowel sounds soft nontender nondistended no rebound or guarding EXTREMITIES: No cyanosis clubbing or pitting edema SKIN: No Osler's nodes or splinter hemorrhages LABORATORY DATA, IMAGING STUDIES, MICROBIOLOGY: Please see below. Echocardiogram: Reviewed ASSESSMENT AND PLAN: 25-year-old with history of polysubstance abuse with cocaine currently using heroin by sniffing symptomatic bradycardia secondary to drug use opioid abuse sinus bradycardia was found to have gram-positive cocci in 1 of 2 sets of blood cultures admitted for empiric antibiotics with intravenous vancomycin awaiting blood culture results and rule out for endocarditis. Gram-positive bacteremia -In the setting of active drug abuse -High likelihood of right-sided endocarditis, but 2D echocardiogram was negative -On empiric IV vancomycin, awaiting blood culture results and sensitivity Polysubstance abuse -Cessation counseling provided -On methadone History of symptomatic bradycardia, resolved -Due to drug use Anxiety -Given 1 dose of Xanax Medical noncompliance -Patient wants to sign out AGAINST MEDICAL ADVICE. -Benefit of staying: Treatment for bacteremia, rule out endocarditis -Risk of leaving AMA: Untreated bacteremia and possible endocarditis can lead to septic emboli, if untreated from possible Emboli to the kidneys brain lungs valvular disease causing heart failure heart blocks. VS, I&O, 24H, [place] Vital Signs/I&O Vital Signs Date Time Temp Pulse Resp B/P (MAP) Pulse Ox O2 Delivery O2 Flow Rate FiO2 01/07/21 06:00 98.1 84 16 137/65 (89) 100 Room Air I&O- Last 24 Hours up to 6 AM 01/07/21 06:00 Intake Total 1750 ml Output Total 100 ml Balance 1650 ml Laboratory Data 24H LABS Laboratory Tests 2 01/07/21 01:07: Vancomycin Level Trough 11.9 01/07/21 05:49: Immature Granulocyte % (Auto) 0.9, Neutrophils (%) (Auto) 60.0, Lymphocytes (%) (Auto) 31.7, Monocytes (%) (Auto) 5.9, Eosinophils (%) (Auto) 0.9, Basophils (%) (Auto) 0.6, Neutrophils # (Auto) 7.0, Lymphocytes # (Auto) 3.7, Monocytes # (Auto) 0.7, Eosinophils # (Auto) 0.1, Basophils # (Auto) 0.1, Nucleated Red Blood Cells % (auto) 0.0, Anion Gap 9, Glomerular Filtration Rate > 60.0, Calci um Level 9.5 CBC/BMP Laboratory Tests 01/07/21 05:49 Microbiology Microbiology 01/06/21 Blood Culture, Received Pending 01/06/21 Blood Culture, Received Pending 01/06/21 Blood Culture - Preliminary, Resulted No growth after 24 hours . All specim... 01/06/21 Respiratory Virus Panel (PCR) ([facility]) - Final, Complete 01/06/21 Blood Culture - Preliminary, Resulted No growth after 24 hours . All specim... SADAF NEWMAN MD Jan 07, 2021 10:30
[2021-01-07] MEDS ORDERED: ALPRAZolam 0.5 MG TAB PO ONE (11:00)
[2021-01-07] MEDS: VANCOMYCIN HCL 500 MG in D5W MINI-BAG PLUS 100 ML IV SCH ×2 (12:05→20:04)
[2021-01-07 14:00] VITALS: BP 156/95
[2021-01-07 22:00] VITALS: BP 124/75
[2021-01-08] MEDS: VANCOMYCIN HCL 750 MG, VIAL MATE ADAPTER 1 EACH in NS 250 ML IV SCH ×2 (01:55→10:00)
[2021-01-08] MEDS: VANCOMYCIN HCL 500 MG in D5W MINI-BAG PLUS 100 ML IV SCH (03:21)
[2021-01-08] MEDS: ACETAMINOPHEN TAB 650MG DOSE (2X325MG) PO PRN ×2 (03:38→09:54)
[2021-01-08] MEDS ORDERED: ALPRAZolam 0.5 MG TAB PO ONE (03:45)
[2021-01-08] MEDS: ONDANSETRON 4 MG ORAL DISINTEGRATING TAB PO PRN ×2 (04:02→09:54)
[2021-01-08] MEDS: PIPERACILLIN/TAZOBACTAM SOD 3.375 GM in D5W MINI-BAG PLUS 50 ML IV SCH (05:42)
[2021-01-08 06:00] VITALS: BP 108/69
[2021-01-08] MEDS: ENOXAPARIN 40MG/0.4ML SYRINGE (J1650 PER 10MG) SC SCH (09:00)
[2021-01-08] MEDS: METHADONE 10 MG TAB (S0109) PO SCH (09:45)
--- NOTE | 2021-01-08 13:03 | IPNPDOC ---
Date Seen The patient was seen on 01/08/21. Progress Note DISCHARGE DIAGNOSES: CONTAMINATED BLOOD CULTURE STAPH HOMINIS BACTEREMIA RECREATIONAL DRUG ABUSE HEROIN ABUSE DISCHARGE MEDICATIONS; SEE BELOW DISCHARGE INSTRUCTIONS: PCP 5DAYS COUNSELLED AGAINST RECREATIONAL DRUG USE. HOSPITAL COURSE: 25-year-old with history of polysubstance abuse with cocaine currently using heroin by sniffing symptomatic bradycardia secondary to drug use opioid abuse sinus bradycardia was found to have gram-positive cocci in 1 of 2 sets of blood cultures admitted for empiric antibiotics with intravenous vancomycin. Gram-positive bacteremia -In the setting of active drug abuse -High likelihood of right-sided endocarditis, but 2D echocardiogram was negative -s/p IV vancomycin -BLOOD CX: STAPH HOMINIS-CONTAMINANT, discontinued iv vanco and dc home. Polysubstance abuse -Cessation counseling provided -On methadone History of symptomatic bradycardia, resolved -Due to drug use Anxiety -Given 1 dose of Xanax Medical noncompliance -Patient wanted to sign out AGAINST MEDICAL ADVICE. -Benefit of staying: Treatment for bacteremia, rule out endocarditis -Risk of leaving AMA: Untreated bacteremia and possible endocarditis can lead to septic emboli, if untreated from possible Emboli to the kidneys brain lungs valvular disease causing heart failure heart blocks. DISCHARGE PHYSICAL EXAMINATION: VITAL SIGNS: Please see below. GENERAL: Anxious .tearful .awake alert oriented to person place and time answering questions appropriately no distress No cyanosis pallor icterus HEENT: Moist mucous membranes no JVD thyromegaly trach ill deviation or stridor CARDIOVASCULAR: S1-S2 sinus rhythm no S3 murmur noted RESPIRATORY: Clear to auscultation no wheezing rales or rhonchi ABDOMINAL: Obese positive bowel sounds soft nontender nondistended no rebound or guarding EXTREMITIES: No cyanosis clubbing or pitting edema SKIN: No Osler's nodes or splinter hemorrhages DISCHARGE LABORATORY DATA, IMAGING STUDIES, MICROBIOLOGY: SEE CHART Echocardiogram: Reviewed TIME SPENT ON DISCHARGE: 30 MINUTES VS, I&O, 24H, [place] Vital Signs/I&O Vital Signs Date Time Temp Pulse Resp B/P (MAP) Pulse Ox O2 Delivery O2 Flow Rate FiO2 01/08/21 06:00 98.0 72 16 108/69 (82) 100 Room Air I&O- Last 24 Hours up to 6 AM 01/08/21 06:00 Intake Total 1495 ml Output Total 500 ml Balance 995 ml Laboratory Data Microbiology Microbiology 01/06/21 Blood Culture - Preliminary, Resulted No Growth after 48 hours. All Specime... 01/06/21 Blood Culture - Preliminary, Resulted No Growth after 48 hours. All Specime... 01/06/21 Blood Culture - Preliminary, Resulted No Growth after 48 hours. All Specime... 01/06/21 Respiratory Virus Panel (PCR) ([facility]) - Final, Complete 01/06/21 Blood Culture - Preliminary, Resulted No Growth after 48 hours. All Specime... SADAF NEWMAN MD Jan 08, 2021 13:03
--- NOTE | 2021-01-18 17:55 | DS.PDOC ---
Discharge Summary General Date of Admission Jan 05, 2021 at 22:54 Date of Discharge 01/08/21 Discharge Summary DISCHARGE DIAGNOSES: CONTAMINATED BLOOD CULTURE STAPH HOMINIS BACTEREMIA RECREATIONAL DRUG ABUSE HEROIN ABUSE DISCHARGE MEDICATIONS; SEE BELOW DISCHARGE INSTRUCTIONS: PCP 5DAYS COUNSELLED AGAINST RECREATIONAL DRUG USE. HOSPITAL COURSE: 25-year-old with history of polysubstance abuse with cocaine currently using heroin by sniffing symptomatic bradycardia secondary to drug use opioid abuse sinus bradycardia was found to have gram-positive cocci in 1 of 2 sets of blood cultures admitted for empiric antibiotics with intravenous vancomycin. Gram-positive bacteremia -In the setting of active drug abuse -High suspicion of right-sided endocarditis, but confirmed to be negative for endocarditis with contaminated blood cultures, not a real infection. - 2D echocardiogram was negative for endocarditis -s/p IV vancomycin -BLOOD CX: STAPH HOMINIS-CONTAMINANT, discontinued iv vanco and dc home. Polysubstance abuse -Cessation counseling provided -On methadone History of symptomatic bradycardia, resolved -Due to drug use Anxiety -Given 1 dose of Xanax Medical noncompliance -Patient wanted to sign out AGAINST MEDICAL ADVICE. -Benefit of staying: Treatment for bacteremia, rule out endocarditis -Risk of leaving AMA: Untreated bacteremia and possible endocarditis can lead to septic emboli, if untreated from possible Emboli to the kidneys brain lungs valvular disease causing heart failure heart blocks. DISCHARGE PHYSICAL EXAMINATION: VITAL SIGNS: Please see below. GENERAL: Anxious .tearful .awake alert oriented to person place and time answering questions appropriately no distress No cyanosis pallor icterus HEENT: Moist mucous membranes no JVD thyromegaly trach ill deviation or stridor CARDIOVASCULAR: S1-S2 sinus rhythm no S3 murmur noted RESPIRATORY: Clear to auscultation no wheezing rales or rhonchi ABDOMINAL: Obese positive bowel sounds soft nontender nondistended no rebound or guarding EXTREMITIES: No cyanosis clubbing or pitting edema SKIN: No Osler's nodes or splinter hemorrhages DISCHARGE LABORATORY DATA, IMAGING STUDIES, MICROBIOLOGY: SEE CHART Echocardiogram: Reviewed TIME SPENT ON DISCHARGE: 30 MINUTES Discharge Medications Scheduled Methadone HCl (Methadone HCl) 10 Mg Tablet, 120 MG PO DAILY, (Reported) Allergies Coded Allergies: Sulfa (Sulfonamide Antibiotics) (Verified Allergy, Unknown, 01/03/21) reaction as baby SADAF NEWMAN MD Jan 18, 2021 17:55
== END 2021-01-08 10:53 | disposition home or self-care (01) ==
LOC: PREINTOOBSV 06:53 → UNDOADMOB 22:54 → UNDOADMIN 22:54 → M MSPAV 22:54 → UNDODISIN 01-08 10:53 → UNDODISOB 01-08 10:53
PROVIDERS: ADMIT Internal Medicine; ATTEND Internal Medicine
DX: R78.81 Bacteremia (principal); B95.7 Other staphylococcus as the cause of diseases classified elsewhere; F11.10 Opioid abuse, uncomplicated; F19.10 Other psychoactive substance abuse, uncomplicated; F12.10 Cannabis abuse, uncomplicated; R00.1 Bradycardia, unspecified; E66.9 Obesity, unspecified; F41.9 Anxiety disorder, unspecified; Z88.2 Allergy status to sulfonamides; F17.290 Nicotine dependence, other tobacco product, uncomplicated; Z79.891 Long term (current) use of opiate analgesic
CPT/HCPCS: 36415; 80048; 80202; 85025; 85652; 86140; 87040; 87641; 87798; 96365; 96366; 96367; J2543; J3370; Q0162

== ENCOUNTER → 2021-01-21 | Outpatient (REF) | payer BC, OTHER | LOC: M LAB REF 15:58 | PROVIDERS: ATTEND Physician Assistant | DX: R11.14 Bilious vomiting (principal); Z78.9 Other specified health status ==

== ENCOUNTER → 2021-03-21 | Outpatient (REF) | payer MEDICAID ==
[2021-03-21 16:48] LABS: HEMOGLOBIN 13.4 g/dl (12.0-15.5); MEAN CORPUSCULAR HEMOGLOBIN 29.8 pg (27.0-33.0); MEAN CORPUSCULAR HGB CONC 32.7 g/dl (32.0-36.5); MEAN CORPUSCULAR VOLUME 91.3 fl (80.0-96.0); PLATELET COUNT, AUTOMATED 277 10^3/uL (150-450); RED BLOOD COUNT 4.49 10^6/uL (4.00-5.40); WHITE BLOOD COUNT 10.6 10^3/uL (4.0-10.0)
[2021-03-21 16:57] LABS: HEMOGLOBIN A1c 5.4 %
[2021-03-21 17:19] LABS: ALBUMIN 3.9 GM/DL (3.2-5.2); ALT/SGPT 113 U/L (12-78); BILIRUBIN,TOTAL 0.3 MG/DL (0.2-1.0); BLOOD UREA NITROGEN 12 MG/DL (7-18); CARBON DIOXIDE LEVEL 31 MEQ/L (21-32); CHLORIDE LEVEL 105 MEQ/L (98-107); CHOLESTEROL LEVEL 236 MG/DL (<200); CHOLESTEROL RISK RATIO 8.137 (<5); CREATININE FOR GFR 0.76 MG/DL (0.55-1.30); GLOMERULAR FILTRATION RATE > 60.0 (>60); GLUCOSE, FASTING 79 MG/DL (70-100); HDL CHOLESTEROL 29 MG/DL (>40); NON-HDL-C 207 MG/DL; POTASSIUM SERUM 4.8 MEQ/L (3.5-5.1); SODIUM LEVEL 140 MEQ/L (136-145); TOTAL PROTEIN 7.3 GM/DL (6.4-8.2); TRIGLYCERIDES LEVEL 557 MG/DL (<150)
== END ==
LOC: M SFHCADAM 13:52
PROVIDERS: ATTEND Physician Assistant
DX: Z00.00 Encounter for general adult medical examination without abnormal findings (principal); F41.0 Panic disorder [episodic paroxysmal anxiety]; E66.9 Obesity, unspecified; Z13.1 Encounter for screening for diabetes mellitus; Z13.220 Encounter for screening for lipoid disorders

== ENCOUNTER → 2021-05-03 | Outpatient (CLI) | payer OTHER | LOC: M WUC 13:01 | PROVIDERS: ATTEND Physician Assistant | DX: S93.402A Sprain of unspecified ligament of left ankle, initial encounter (principal); W18.30XA Fall on same level, unspecified, initial encounter; Y92.009 Unspecified place in unspecified non-institutional (private) residence as the place of occurrence of the external cause ==

== ENCOUNTER → 2021-06-28 | Outpatient (CLI) | payer OTHER ==
[2021-06-28 13:28] LABS: HEMATOCRIT 41.6 % (36.0-47.0); HEMOGLOBIN 14.3 g/dl (12.0-15.5); MEAN CORPUSCULAR HEMOGLOBIN 30.8 pg (27.0-33.0); MEAN CORPUSCULAR HGB CONC 34.4 g/dl (32.0-36.5); MEAN CORPUSCULAR VOLUME 89.5 fl (80.0-96.0); PLATELET COUNT, AUTOMATED 284 10^3/uL (150-450); RED BLOOD COUNT 4.65 10^6/uL (4.00-5.40); WHITE BLOOD COUNT 9.6 10^3/uL (4.0-10.0)
[2021-06-28 14:17] LABS: ALBUMIN 3.7 GM/DL (3.2-5.2); ALT/SGPT 113 U/L (12-78); BILIRUBIN,TOTAL 0.3 MG/DL (0.2-1.0); BLOOD UREA NITROGEN 11 MG/DL (7-18); CALCIUM LEVEL 9.7 MG/DL (8.5-10.1); CARBON DIOXIDE LEVEL 29 MEQ/L (21-32); CHLORIDE LEVEL 106 MEQ/L (98-107); CREATININE FOR GFR 0.82 MG/DL (0.55-1.30); GLOMERULAR FILTRATION RATE > 60.0 (>60); GLUCOSE, FASTING 109 MG/DL (70-100); POTASSIUM SERUM 4.3 MEQ/L (3.5-5.1); SODIUM LEVEL 139 MEQ/L (136-145); TOTAL PROTEIN 7.2 GM/DL (6.4-8.2)
[2021-06-28 14:26] LABS: HEPATITIS B SURFACE ANTIGEN NEGATIVE (NEGATIVE)
[2021-06-28 14:49] LABS: HEPATITIS C VIRUS ABY INDEX 0.1 INDEX (<0.8); HIV 1&2 SCREEN CENTAUR NEGATIVE (NEGATIVE)
[2021-06-28 14:50] LABS: GC DNA AMPLIFICATION NEGATIVE (NEGATIVE)
[2021-06-28 20:15] LABS: HCG, SERUM QUALITATIVE NEGATIVE (NEGATIVE)
== END ==
LOC: M LAB 12:43
PROVIDERS: ATTEND Family Medicine
DX: F11.20 Opioid dependence, uncomplicated (principal)

== ENCOUNTER → 2021-07-12 | Outpatient (CLI) | payer OTHER | LOC: M RAD 08:16 | PROVIDERS: ATTEND Physician Assistant | DX: R74.8 Abnormal levels of other serum enzymes (principal) ==

== ENCOUNTER → 2021-10-13 | Outpatient (REF) | payer OTHER ==
[2021-10-13 19:51] LABS: GC DNA AMPLIFICATION NEGATIVE (NEGATIVE)
== END ==
LOC: M LAB REF 18:13
PROVIDERS: ATTEND Internal Medicine
DX: R30.0 Dysuria (principal)

== ENCOUNTER → 2021-10-18 | Outpatient (RCR) | payer OTHER | LOC: M PT 13:52 | PROVIDERS: ATTEND Physician Assistant | DX: S93.402A Sprain of unspecified ligament of left ankle, initial encounter (principal) ==

== ENCOUNTER 2021-11-05 07:45 | Outpatient (RCR) | payer OTHER | END 2021-11-18 | LOC: M PT 07:45 | PROVIDERS: ATTEND Physician Assistant | DX: M25.572 Pain in left ankle and joints of left foot (principal) ==

== ENCOUNTER → 2022-01-20 | Outpatient (REF) | LOC: M LABSMTC 11:13 | PROVIDERS: ATTEND Family Medicine | DX: Z11.52 Encounter for screening for COVID-19 (principal) ==

== ENCOUNTER → 2022-02-06 | Outpatient (REF) | LOC: M EMP 08:41 | PROVIDERS: ATTEND Family Medicine | DX: Z11.52 Encounter for screening for COVID-19 (principal) ==

== ENCOUNTER → 2022-03-25 | Outpatient (REF) | payer OTHER ==
[2022-03-25 19:10] LABS: GC DNA AMPLIFICATION NEGATIVE (NEGATIVE)
== END ==
LOC: M WUC 16:17
PROVIDERS: ATTEND Student in an Organized Health Care Education/Training Program
DX: R30.0 Dysuria (principal)

== ENCOUNTER → 2022-04-30 | Outpatient (CLI) | payer OTHER ==
[2022-04-30 13:36] LABS: ALBUMIN 4.2 G/DL (3.2-5.2); ALKALINE PHOSPHATASE 79 U/L (46-116); ALT/SGPT 57 U/L (7.0-40); AST/SGOT 36 U/L (<34); BILIRUBIN,TOTAL 0.4 MG/DL (0.3-1.2); BLOOD UREA NITROGEN 14 MG/DL (9-23); CALCIUM LEVEL 10.2 MG/DL (8.5-10.1); CARBON DIOXIDE LEVEL 31 MMOL/L (20-31); CHLORIDE LEVEL 101 MMOL/L (98-107); CREATININE FOR GFR 0.72 MG/DL (0.55-1.30); FERRITIN 24.1 NG/ML (7.3-270.7); GLOMERULAR FILTRATION RATE > 60.0 (>60); GLUCOSE, FASTING 95 MG/DL (60-100); POTASSIUM SERUM 4.3 MMOL/L (3.5-5.1); SODIUM LEVEL 140 MMOL/L (136-145); TOTAL PROTEIN 7.1 G/DL (5.7-8.2)
[2022-04-30 13:48] LABS: HEPATITIS B SURFACE ANTIGEN NEGATIVE (NEGATIVE)
[2022-04-30 14:07] LABS: HEPATITIS C VIRUS ABY INDEX 0.1 INDEX (<0.8)
[2022-04-30 14:08] LABS: HEPATITIS B CORE ANTIBODY IGM NEGATIVE (NEGATIVE)
[2022-05-01 20:07] LABS: ANA (HEP2) Negative (.)
== END ==
LOC: M WUC 09:31
PROVIDERS: ATTEND Physician Assistant
DX: R74.8 Abnormal levels of other serum enzymes (principal)

== ENCOUNTER → 2022-04-30 | Outpatient (REF) | payer OTHER | LOC: M WUC 12:19 | PROVIDERS: ATTEND Physician Assistant | DX: J02.9 Acute pharyngitis, unspecified (principal) ==

== ENCOUNTER → 2022-05-02 | Outpatient (REF) | LOC: M LABSMTC 10:23 | PROVIDERS: ATTEND Family Medicine | DX: Z00.00 Encounter for general adult medical examination without abnormal findings (principal) ==

== ENCOUNTER → 2022-06-27 | Outpatient (REF) | payer OTHER ==
[~2022-06-27] MED LIST changes: +BAYE325T13 PO; +IBUP200C25 PO
[2022-06-27 16:54] LABS: CHOLESTEROL LEVEL 206 MG/DL (<200); CHOLESTEROL RISK RATIO 6.84 (<5); HDL CHOLESTEROL 30.1 MG/DL (>40); NON-HDL-C 175.9 MG/DL; TRIGLYCERIDES LEVEL 469 MG/DL (<150)
== END ==
LOC: M SFHCADAM 14:39
PROVIDERS: ATTEND Physician Assistant
DX: K76.0 Fatty (change of) liver, not elsewhere classified (principal)

== ENCOUNTER → 2022-07-08 | Outpatient (CLI) | payer OTHER | LOC: M LABSMTC 10:34 | PROVIDERS: ATTEND Anesthesiology | DX: Z01.818 Encounter for other preprocedural examination (principal); Z11.52 Encounter for screening for COVID-19 ==

== ENCOUNTER 2022-07-12 09:58 | Day surgery (SDC) | payer OTHER ==
[~2022-07-12] VITALS: Ht 167.6 cm; Wt 101.1 kg
[~2022-07-12 09:58] MED LIST changes: +AMPICILLIN SOD/SULBACTAM SOD 3 GM in D5W MINI-BAG PLUS 100 ML IV ONE
[2022-07-12] MEDS ORDERED: LR 1,000 ML IV SCH ×2 (10:45→14:30)
[2022-07-12] MEDS ORDERED: CHLORHEXIDINE GLUCONATE 0.12 % 15ML UDC (PERIDEX ORAL RINSE) As Ordered ONE (13:19)
[2022-07-12] MEDS ORDERED: LIDOCAINE 2% W/ EPINEPHRINE 1.7 ML DENTAL INJ As Ordered ONE (13:19)
[2022-07-12] MEDS ORDERED: BUPIVACAINE LIPOSOME/PF 1.3% 20ML VIAL (13.3MG/ML)(EXPAREL) As Ordered ONE (13:22)
[2022-07-12] MEDS ORDERED: ACETAMINOPHEN 1000MG 100ML IV BAG As Ordered ONE (13:48)
[2022-07-12] MEDS ORDERED: MIDAZOLAM INJ 2MG/2ML VIAL As Ordered ONE (14:22)
[2022-07-12] MEDS ORDERED: SUGAMMADEX SODIUM 500 MG/5 ML VIAL (BRIDION) As Ordered ONE (14:22)
[2022-07-12] MEDS ORDERED: fentaNYL 100 MCG/2 ML INJECTION As Ordered ONE (14:22)
[2022-07-12] MEDS ORDERED: ROCURONIUM BROMIDE 50MG/5ML VIAL As Ordered ONE (14:22)
[2022-07-12] MEDS ORDERED: ONDANSETRON 4MG 2ML VIAL As Ordered ONE (14:22)
[2022-07-12] MEDS ORDERED: propofoL 200 MG/20 ML VIAL As Ordered ONE (14:22)
[2022-07-12] MEDS ORDERED: LIDOCAINE 2% 100MG/5ML SDV (FOR ANES.) As Ordered ONE (14:22)
[2022-07-12] MEDS ORDERED: HYDROMORPHONE HCL 0.5 MG/ 0.5 ML SYRINGE IV PRN (14:30)
[2022-07-12] MEDS ORDERED: ONDANSETRON 4MG 2ML VIAL IV PRN (14:30)
[2022-07-12] MEDS ORDERED: fentaNYL 100 MCG/2 ML INJECTION IV PRN (14:30)
[2022-07-12] MEDS ORDERED: oxyCODONE 5MG TAB PO PRN (14:30)
[2022-07-12 15:52] VITALS: BP 140/90
== END 2022-07-12 15:52 | disposition home or self-care (01) ==
LOC: M SDC 09:58
PROVIDERS: ATTEND Dentist
DX: K02.9 Dental caries, unspecified (principal); F41.9 Anxiety disorder, unspecified; F32.A Depression, unspecified; F17.290 Nicotine dependence, other tobacco product, uncomplicated; Z79.899 Other long term (current) drug therapy; Z79.82 Long term (current) use of aspirin; Z88.8 Allergy status to other drugs, medicaments and biological substances; Z88.2 Allergy status to sulfonamides
CPT/HCPCS: 81025; 88300; C9290; D7210; D9223; J0131; J0295; J1100; J2250; J2405; J3010

== ENCOUNTER → 2022-08-09 | Outpatient (REF) | payer OTHER ==
[~2022-08-09] MED LIST changes: -AMPICILLIN SOD/SULBACTAM SOD 3 GM in D5W MINI-BAG PLUS 100 ML IV ONE
== END ==
LOC: M PLALAB 16:55
PROVIDERS: ATTEND Nurse Practitioner Family
DX: Z12.4 Encounter for screening for malignant neoplasm of cervix (principal)

== ENCOUNTER → 2022-09-11 | Outpatient (REF) | LOC: M EMP 11:54 | PROVIDERS: ATTEND Family Medicine | DX: Z11.52 Encounter for screening for COVID-19 (principal) ==

== ENCOUNTER → 2022-09-13 | Outpatient (REF) | LOC: M EMP 12:04 | PROVIDERS: ATTEND Family Medicine | DX: Z11.52 Encounter for screening for COVID-19 (principal) ==

== ENCOUNTER → 2022-10-24 | Outpatient (REF) | LOC: M EMP 09:12 | PROVIDERS: ATTEND Family Medicine | DX: Z11.52 Encounter for screening for COVID-19 (principal) ==

== ENCOUNTER → 2023-03-26 | Outpatient (CLI) | payer OTHER ==
[2023-03-26 11:07] LABS: HEMATOCRIT 43.5 % (36.0-47.0); HEMOGLOBIN 14.3 g/dl (12.0-15.5); MEAN CORPUSCULAR HEMOGLOBIN 30.9 pg (27.0-33.0); MEAN CORPUSCULAR HGB CONC 32.9 g/dl (32.0-36.5); PLATELET COUNT, AUTOMATED 279 10^3/uL (150-450); RED BLOOD COUNT 4.63 10^6/uL (4.00-5.40)
[2023-03-26 11:31] LABS: ALBUMIN 4.1 G/DL (3.2-5.2); ALKALINE PHOSPHATASE 54 U/L (46-116); ALT/SGPT 57 U/L (7.0-40); AST/SGOT 24 U/L (<34); BILIRUBIN,TOTAL 0.2 MG/DL (0.3-1.2); BLOOD UREA NITROGEN 13 MG/DL (9-23); CALCIUM LEVEL 9.6 MG/DL (8.5-10.1); CARBON DIOXIDE LEVEL 30 MMOL/L (20-31); CHLORIDE LEVEL 106 MMOL/L (98-107); GLOMERULAR FILTRATION RATE > 60.0 (>60); GLUCOSE, FASTING 94 MG/DL (60-100); POTASSIUM SERUM 4.1 MMOL/L (3.5-5.1); SODIUM LEVEL 141 MMOL/L (136-145); TOTAL PROTEIN 7.1 G/DL (5.7-8.2)
[2023-03-26 11:51] LABS: HCG, SERUM QUALITATIVE NEGATIVE (NEGATIVE)
[2023-03-26 12:54] LABS: HEPATITIS C VIRUS ABY INDEX 0.05 INDEX (<0.8); HIV 1&2 SCREEN NEGATIVE (NEGATIVE)
== END ==
LOC: M WUC 09:20
PROVIDERS: ATTEND Family Medicine
DX: F11.20 Opioid dependence, uncomplicated (principal)

== ENCOUNTER → 2023-04-05 | Outpatient (REF) | payer OTHER ==
[2023-04-05 17:35] LABS: APPEARANCE, URINE HAZY (CLEAR); BACTERIA, URINE AUTO NEGATIVE (NEGATIVE); BILIRUBIN, URINE AUTO NEGATIVE (NEGATIVE); BLOOD, URINE BLOOD NEGATIVE (NEGATIVE); COLOR, URINE AMBER (YELLOW); GLUCOSE, URINE (UA) AUTO NEGATIVE (NEGATIVE); KETONE, URINE AUTO NEGATIVE (NEGATIVE); LEUKOCYTE ESTERASE, URINE AUTO 1+ (NEGATIVE); MUCUS, URINE MODERATE (NEGATIVE); NITRITE, URINE AUTO NEGATIVE (NEGATIVE); PROTEIN, URINE AUTO 1+ mg/dL (NEGATIVE); RBC, URINE AUTO 0 /HPF (0-3); SPECIFIC GRAVITY URINE AUTO 1.029 (1.002-1.035); SQUAMOUS EPITHELIAL CELL UR AU 1 /HPF (0-6); WBC, URINE AUTO 1 /HPF (0-3)
== END ==
LOC: M LAB REF 17:12
PROVIDERS: ATTEND Physician Assistant
DX: N39.0 Urinary tract infection, site not specified (principal)

== ENCOUNTER → 2023-08-27 | Outpatient (CLI) | payer OTHER ==
[2023-08-27 19:12] LABS: BASO # 0.1 10^3/uL (0.0-0.2); BASO % 0.7 % (0.0-1.0); EOS # 0.2 10^3/uL (0.0-0.5); EOS % 1.6 % (0.0-3.0); HEMATOCRIT 39.2 % (36.0-47.0); HEMOGLOBIN 13.6 g/dl (12.0-15.5); LYMPH # 3.8 10^3/uL (1.5-5.0); LYMPH % 35.6 % (24.0-44.0); MEAN CORPUSCULAR HEMOGLOBIN 32.1 pg (27.0-33.0); MEAN CORPUSCULAR HGB CONC 34.7 g/dl (32.0-36.5); MEAN CORPUSCULAR VOLUME 92.5 fl (80.0-96.0); MONO # 0.4 10^3/uL (0.0-0.8); MONO % 4.1 % (2.0-8.0); NEUTROPHILS # 6.2 10^3/uL (1.5-8.5); NEUTROPHILS % 57.6 % (36.0-66.0); PLATELET COUNT, AUTOMATED 293 10^3/uL (150-450); RED BLOOD COUNT 4.24 10^6/uL (4.00-5.40); WHITE BLOOD COUNT 10.7 10^3/uL (4.0-10.0)
[2023-08-27 19:19] LABS: HEMOGLOBIN A1c 4.8 % (4.0-6.0)
[2023-08-27 19:35] LABS: FREE T4 1.11 NG/DL (0.89-1.76); THYROID STIMULATING HORMONE 1.004 uIU/ML (0.55-4.78)
[2023-08-27 19:36] LABS: FOLLICLE STIMULATING HORMONE 4.3 mIU/ML
[2023-08-27 19:37] LABS: ALBUMIN 3.8 G/DL (3.2-5.2); ALKALINE PHOSPHATASE 56 U/L (46-116); ALT/SGPT 34 U/L (7.0-40); AST/SGOT 19 U/L (<34); BILIRUBIN,TOTAL 0.4 MG/DL (0.3-1.2); BLOOD UREA NITROGEN 14 MG/DL (9-23); CALCIUM LEVEL 9.8 MG/DL (8.5-10.1); CARBON DIOXIDE LEVEL 30 MMOL/L (20-31); CHLORIDE LEVEL 105 MMOL/L (98-107); CREATININE FOR GFR 0.72 MG/DL (0.55-1.30); GLOMERULAR FILTRATION RATE > 60.0 (>60); GLUCOSE, FASTING 73 MG/DL (60-100); LUTEINIZING HORMONE 10.6 mIU/ML; POTASSIUM SERUM 4.2 MMOL/L (3.5-5.1); PROLACTIN 17.18 NG/ML; SODIUM LEVEL 139 MMOL/L (136-145); TOTAL PROTEIN 7.1 G/DL (5.7-8.2)
[2023-08-27 19:39] LABS: ESTRADIOL 154.6 PG/ML
== END ==
LOC: M PLALAB 16:18
PROVIDERS: ATTEND Nurse Practitioner Family
DX: N92.6 Irregular menstruation, unspecified (principal)

== ENCOUNTER → 2023-08-29 | Outpatient (REF) | payer OTHER ==
[2023-08-29 21:06] LABS: APPEARANCE, URINE CLEAR (CLEAR); BACTERIA, URINE AUTO NEGATIVE (NEGATIVE); BILIRUBIN, URINE AUTO NEGATIVE (NEGATIVE); BLOOD, URINE BLOOD NEGATIVE (NEGATIVE); COLOR, URINE YELLOW (YELLOW); GLUCOSE, URINE (UA) AUTO NEGATIVE (NEGATIVE); KETONE, URINE AUTO NEGATIVE (NEGATIVE); LEUKOCYTE ESTERASE, URINE AUTO TRACE (NEGATIVE); NITRITE, URINE AUTO NEGATIVE (NEGATIVE); PROTEIN, URINE AUTO NEGATIVE (NEGATIVE); RBC, URINE AUTO 0 /HPF (0-3); SQUAMOUS EPITHELIAL CELL UR AU 1 /HPF (0-6); UROBILINOGEN, URINE AUTO 0.2 mg/dL (0.0-2.0); WBC, URINE AUTO 1 /HPF (0-3)
== END ==
LOC: M LAB REF 20:58
PROVIDERS: ATTEND Physician Assistant
DX: N39.0 Urinary tract infection, site not specified (principal)

== ENCOUNTER → 2023-11-05 | Outpatient (REF) | payer OTHER ==
[2023-11-05 18:41] LABS: Trichomonas vaginalis (AMP) NOT DETECTED (NEGATIVE)
[2023-11-05 19:05] LABS: GC DNA AMPLIFICATION NEGATIVE (NEGATIVE)
== END ==
LOC: M SFHCWAGY 16:59
PROVIDERS: ATTEND Nurse Practitioner Family
DX: Z11.3 Encounter for screening for infections with a predominantly sexual mode of transmission (principal)

== ENCOUNTER 2024-04-22 22:02 | Emergency (ER) | payer OTHER ==
[~2024-04-22] VITALS: Ht 167.6 cm; Wt 96.1 kg
[2024-04-23 00:26] LABS: BLOOD UREA NITROGEN 15 MG/DL (9-23); CALCIUM LEVEL 10.3 MG/DL (8.5-10.1); CARBON DIOXIDE LEVEL 22 MMOL/L (20-31); CHLORIDE LEVEL 107 MMOL/L (98-107); CREATININE FOR GFR 0.56 MG/DL (0.55-1.30); GLOMERULAR FILTRATION RATE > 60.0 (>60); GLUCOSE, FASTING 95 MG/DL (60-100); POTASSIUM SERUM 3.8 MMOL/L (3.5-5.1); SODIUM LEVEL 140 MMOL/L (136-145)
[2024-04-23 00:28] LABS: BASO # 0.1 10^3/uL (0.0-0.2); BASO % 0.6 % (0.0-1.0); EOS # 0.2 10^3/uL (0.0-0.5); EOS % 1.2 % (0.0-3.0); LYMPH % 21.6 % (24.0-44.0); MEAN CORPUSCULAR HEMOGLOBIN 31.3 pg (27.0-33.0); MEAN CORPUSCULAR HGB CONC 34.2 g/dl (32.0-36.5); MEAN CORPUSCULAR VOLUME 91.3 fl (80.0-96.0); MONO # 1.1 10^3/uL (0.0-0.8); MONO % 5.8 % (2.0-8.0); NEUTROPHILS # 13.1 10^3/uL (1.5-8.5); NEUTROPHILS % 70.3 % (36.0-66.0); PLATELET COUNT, AUTOMATED 338 10^3/uL (150-450); RED BLOOD COUNT 4.16 10^6/uL (4.00-5.40); WHITE BLOOD COUNT 18.6 10^3/uL (4.0-10.0)
[2024-04-23 00:41] LABS: HCG, SERUM QUANTITATIVE 27926.4 MIU/ML (<4.2)
[2024-04-23] MEDS: ACETAMINOPHEN *IV* 1,000 MG in IV 1 EA IV ONE (03:33)
[2024-04-23 03:49] LABS: BASO # 0.1 10^3/uL (0.0-0.2); BASO % 0.3 % (0.0-1.0); EOS % 0.2 % (0.0-3.0); HEMATOCRIT 35.4 % (36.0-47.0); HEMOGLOBIN 12.3 g/dl (12.0-15.5); LYMPH # 3.3 10^3/uL (1.5-5.0); LYMPH % 13.8 % (24.0-44.0); MEAN CORPUSCULAR HEMOGLOBIN 31.5 pg (27.0-33.0); MEAN CORPUSCULAR HGB CONC 34.7 g/dl (32.0-36.5); MEAN CORPUSCULAR VOLUME 90.5 fl (80.0-96.0); MONO # 0.5 10^3/uL (0.0-0.8); MONO % 2.1 % (2.0-8.0); NEUTROPHILS # 19.9 10^3/uL (1.5-8.5); NEUTROPHILS % 82.8 % (36.0-66.0); PLATELET COUNT, AUTOMATED 338 10^3/uL (150-450); RED BLOOD COUNT 3.91 10^6/uL (4.00-5.40)
[2024-04-23 04:06] LABS: KETONE, URINE AUTO RFX NEGATIVE (NEGATIVE); MUCUS, URINE RFX SMALL (NEGATIVE); NITRITE, URINE AUTO RFX NEGATIVE (NEGATIVE)
[2024-04-23 04:11] LABS: LEUKOCYTE ESTERASE UR AUTO RFX TRACE (NEGATIVE)
[2024-04-23 06:02] VITALS: BP 154/91; TEMP 97.4; O2SAT 99
[2024-04-25] MEDS ORDERED: CEPH500C PO (11:01)
== END 2024-04-23 06:05 | disposition home or self-care (01) ==
LOC: M ED 22:02
DX: O03.9 Complete or unspecified spontaneous abortion without complication (principal); E28.2 Polycystic ovarian syndrome; F43.10 Post-traumatic stress disorder, unspecified; F17.290 Nicotine dependence, other tobacco product, uncomplicated; Z88.2 Allergy status to sulfonamides; Z88.8 Allergy status to other drugs, medicaments and biological substances; Z79.1 Long term (current) use of non-steroidal anti-inflammatories (NSAID); Z79.2 Long term (current) use of antibiotics; Z79.899 Other long term (current) drug therapy
CPT/HCPCS: 36415; 76801; 80048; 81001; 84702; 85025; 86850; 86900; 86901; 87088; 87186; 96365; 99284; J0131

== ENCOUNTER → 2024-04-28 | Outpatient (CLI) | payer OTHER ==
[~2024-04-28] MED LIST changes: +CEPH500C PO
== END ==
LOC: M PLALAB 14:50
PROVIDERS: ATTEND Nurse Practitioner Family
DX: O03.9 Complete or unspecified spontaneous abortion without complication (principal)

== ENCOUNTER → 2024-09-01 | Outpatient (REF) | payer OTHER ==
[2024-09-01 14:24] LABS: FREE T4 0.95 NG/DL (0.89-1.76); THYROID STIMULATING HORMONE 1.737 uIU/ML (0.55-4.78)
[2024-09-01 14:26] LABS: HEMATOCRIT 38.6 % (36.0-47.0); HEMOGLOBIN 12.9 g/dl (12.0-15.5); MEAN CORPUSCULAR HEMOGLOBIN 31.1 pg (27.0-33.0); MEAN CORPUSCULAR HGB CONC 33.4 g/dl (32.0-36.5); PLATELET COUNT, AUTOMATED 296 10^3/uL (150-450); RED BLOOD COUNT 4.15 10^6/uL (4.00-5.40); WHITE BLOOD COUNT 10.5 10^3/uL (4.0-10.0)
[2024-09-01 14:46] LABS: ALBUMIN 3.7 G/DL (3.2-5.2); ALKALINE PHOSPHATASE 60 U/L (35-104); ALT/SGPT 39 U/L (7.0-40); AST/SGOT 26 U/L (<34); BILIRUBIN,TOTAL < 0.2 MG/DL (0.3-1.2); BLOOD UREA NITROGEN 18 MG/DL (9-23); CALCIUM LEVEL 9.6 MG/DL (8.5-10.1); CARBON DIOXIDE LEVEL 32 MMOL/L (20-31); CHLORIDE LEVEL 101 MMOL/L (98-107); CHOLESTEROL LEVEL 375 MG/DL (<200); CHOLESTEROL RISK RATIO 14.04 (<5); GLOMERULAR FILTRATION RATE > 90.0 (>60); GLUCOSE, FASTING 89 MG/DL (60-100); HDL CHOLESTEROL 26.7 MG/DL (>40); NON-HDL-C 348.3 MG/DL; POTASSIUM SERUM 4.5 MMOL/L (3.5-5.1); SODIUM LEVEL 138 MMOL/L (136-145); TOTAL PROTEIN 6.7 G/DL (5.7-8.2); TRIGLYCERIDES LEVEL 2769 MG/DL (<150)
[2024-09-01 15:27] LABS: HEMOGLOBIN A1c 5.3 % (4.0-6.0)
== END ==
LOC: M SFHCADAM 13:04
PROVIDERS: ATTEND Physician Assistant
DX: F11.90 Opioid use, unspecified, uncomplicated (principal); E66.811 Obesity, class 1; E78.1 Pure hyperglyceridemia; K76.0 Fatty (change of) liver, not elsewhere classified; Z68.32 Body mass index [BMI] 32.0-32.9, adult